=== PATIENT | male | born 1970 ===

== ENCOUNTER 2018-03-21 16:54 | Inpatient (IN) | payer OTHER ==
[2018-03-21 19:02] LABS: BASO # 0.1 K/uL (0.0-0.2); EOS % 0.2 % (0.0-4.0); HEMOGLOBIN 14.8 g/dL (12.0-18.0); LYMPH # 2.4 K/uL (1.0-4.3); LYMPH % 41.5 % (20.0-40.0); MEAN CELL VOLUME 89.2 fl (80.0-94.0); MEAN CORPUSCULAR HEMOGLOBIN 29.8 pg (27.0-31.0); MEAN CORPUSCULAR HGB CONC 33.4 g/dL (33.0-37.0); MONO # 0.5 K/uL (0.0-0.8); MONO % 9.5 % (0.0-10.0); NEUT # 2.7 K/uL (1.8-7.0); NEUT % 47.8 % (50.0-75.0); NRBC % 0.3 % (0.0-0.0); RBC 4.97 Mil/uL (4.40-5.90); RED CELL DISTRIBUTION WIDTH 15.3 % (11.5-14.5); WHITE BLOOD COUNT 5.7 K/uL (4.8-10.8)
--- NOTE | 2018-03-21 19:22 | ED PDOC ---
HPI: Psych/Substance Abuse Time Seen by Provider: 03/21/18 17:13 Chief Complaint (Nursing): Psychiatric Evaluation History Per: Patient Additional Complaint(s): Pt. states for the past 3 months he's had progressively worsening anxiety. Indicates that is the source of his stress. States that this time of the year is the busiest season for his job. 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 Reports feeling a lot of pressure from his managers. Today he took off from work as he was unable to withstand feeling anxious. Also reports drinking 3 shots of vodka today and has had fleeting thoughts of suicide without a plan. Pt. still feels suicidal. Has had similar symptoms in the past and has seen a psychiatrist and been prescribed meds for anxiety but does not take it. Denies HI, hallucinations, chest pain, SOB, palpitations. Past Medical History Reviewed: Historical Data, Nursing Documentation, Vital Signs Vital Signs: Last Vital Signs Temp 98.2 F 03/21/18 16:58 Pulse 112 H 03/21/18 16:58 Resp 19 03/21/18 16:58 BP 141/96 H 03/21/18 16:58 Pulse Ox 98 03/21/18 16:58 - Medical History PMH: Anxiety, Diabetes, Diverticulitis, HTN - Surgical History Surgical History: No Surg Hx - Family History Family History: States: No Known Family Hx - Living Arrangements Living Arrangements: With Friends/Others (girlfriend) - Social History Current smoker - smoking cessation education provided: No Alcohol: Occasional Drugs: Cocaine - Home Medications Home Medications: Ambulatory Orders Medication Instructions Recorded Cholecalciferol [Vitamin D 1000 IU] 1,000 unit PO DAILY 03/21/18 Escitalopram [Lexapro] 10 mg PO DAILY 03/21/18 Ezetimibe [Zetia] 10 mg PO DAILY 03/21/18 Indomethacin [Indocin] 50 mg PO Q6 PRN 03/21/18 MetFORMIN [glucoPHAGE] 1,000 mg PO BID 03/21/18 Rosuvastatin Calcium [Crestor] 40 mg PO DAILY 03/21/18 amLODIPine [Norvasc] 10 mg PO DAILY 03/21/18 busPIRone [Buspar] 10 mg PO Q8 03/21/18 clonazePAM [Klonopin] 0.25 mg PO Q12 03/21/18 hydrALAZINE [Apresoline] 50 mg PO Q6 03/21/18 - Allergies Allergies/Adverse Reactions: Allergies Allergy/AdvReac Type Severity Reaction Status Date / Time No Known Allergies Allergy Verified 03/21/18 17:05 Review of Systems ROS Statement: Except As Marked, All Systems Reviewed And Found Negative Psych: Positive for: Anxiety Physical Exam - Reviewed Nursing Documentation Reviewed: Yes Vital Signs Reviewed: Yes - Physical Exam Appears: Positive for: Well, Non-toxic, No Acute Distress Head Exam: Positive for: ATRAUMATIC, NORMAL INSPECTION, NORMOCEPHALIC Skin: Positive for: Normal Color, Warm. Negative for: Rash Eye Exam: Positive for: EOMI, Normal appearance, PERRL ENT: Positive for: Normal ENT Inspection Neck: Positive for: Normal, Painless ROM Cardiovascular/Chest: Positive for: Regular Rate, Rhythm, Chest Non Tender. Negative for: Tachycardia Respiratory: Positive for: CNT, Normal Breath Sounds Gastrointestinal/Abdominal: Positive for: Normal Exam, Soft. Negative for: Tenderness Back: Positive for: Normal Inspection. Negative for: L CVA Tenderness, R CVA Tenderness Extremity: Positive for: Normal ROM Neurologic/Psych: Positive for: Alert, Oriented (x3), Mood/Affect (crying but consolable and cooperative). Negative for: Aphasia, Facial Droop - Laboratory Results Result Diagrams: 03/21/18 18:58 - ECG ECG: Positive for: Interpreted By Me ECG Rhythm: Positive for: Sinus Rhythm. Negative for: ST/T Changes Rate: 92 O2 Sat by Pulse Oximetry: 98 - Progress ED Course And Treament: Labs, EKG ordered. Pt. placed on 1:1. Disposition - Clinical Impression Clinical Impression: Anxiety - Patient ED Disposition Is Patient to be Admitted: Transfer of Care (Signed out to Yeison LAU pending medical clearance and crisis eval) - Disposition Disposition Time: 20:00 Condition: STABLE
[2018-03-21 19:32] LABS: BLOOD UREA NITROGEN 17 mg/dl (9-20); CALCIUM 8.4 mg/dL (8.4-10.2); GFR NON-AFRICAN AMERICAN > 60
[2018-03-21 19:34] LABS: SQUAMOUS EPITHIAL < 1 /hpf (0-5); URINE BACTERIA RARE (<OCC); URINE BILIRUBIN NEGATIVE (NEGATIVE); URINE BLOOD NEGATIVE (NEGATIVE); URINE CLARITY SLIGHTY-CLOUDY (Clear); URINE COLOR YELLOW (YELLOW); URINE GLUCOSE (UA) NEG (Normal); URINE PROTEIN 30 mg/dL (NEGATIVE)
[2018-03-21 19:38] LABS: ALT/SGPT 127 U/L (21-72); AST/SGOT 261 U/L (17-59)
[2018-03-21 19:40] LABS: URINE LEUKOCYTE ESTERASE NEGATIVE Leu/uL (Negative)
[2018-03-21 19:57] LABS: BARBITURATES, UR NEGATIVE (NEGATIVE); BENZODIAZEPINES, UR NEGATIVE (NEGATIVE); OPIATES, UR NEGATIVE (NEGATIVE); PHENCYCLIDINE, UR NEGATIVE (NEGATIVE)
--- NOTE | 2018-03-21 21:40 | ED PDOC ---
- Laboratory Results Result Diagrams: 03/21/18 18:58 03/21/18 18:58 - ECG O2 Sat by Pulse Oximetry: 98 - Progress ED Course And Treament: Case endorsed to sheet writer from Jeanna LAU pending u/s, final crisis dispo Clinical statement: elevated liver function tests. Findings: The liver demonstrates increased echotexture and echogenicity, with no mass lesions. The liver is enlarged, measuring 21.1 cm in longest diameter. The gallbladder contains several echogenic shadowing foci. There is no evidence of gallbladder wall thickening. A small amount of echogenic non-shadowing material is seen within the gallbladder as well. The common bile duct measures 5 mm in diameter. The pancreas demonstrates normal contour and appearance. The spleen is unremarkable, measuring 9.7 cm in longest diameter. The right kidney measures 1020 cm in length and the left kidney measures 11.9 cm in length. There is no evidence of hydronephrosis or nephrolithiasis. The visualized portions of the aorta and inferior vena cava are within normal limits. No ascites are seen. Impression: 1. Hepatomegaly with diffuse fatty infiltration of the liver. 2. Cholelithiasis with gallbladder sludge. No evidence for acute cholecystitis. Patient evaluated by storage worker; to be admitted as per Dr. Salazar Medical Decision Making Medical Decision Making: Patient medically stable for psych admission Disposition - Clinical Impression Clinical Impression: Schizoaffective disorder, Gallstones - POA Present On Arrival: None - Disposition Disposition: Admitted as In-Patient Disposition Time: 22:45 Condition: STABLE
[2018-03-21 22:30] VITALS: O2SAT 98
[2018-03-22] MEDS ORDERED: Magnesium Hydroxide Susp 30 ml UD PO PRN (00:30)
[2018-03-22] MEDS ORDERED: DiphenhydrAMINE 50 mg/ml Inj IM PRN (00:30)
[2018-03-22] MEDS ORDERED: Alum-Mag Hydrox-Simethicone Susp (30 mL) PO PRN (00:30)
--- NOTE | 2018-03-22 01:29 | PCM.BM ---
Treatment Plan Problems - Problems identified on initial assessmt Hopelessness/Helplessness Date Initiated: 03/22/18 Time Initiated: Assessment reference: NA Status: Active Altered Sleep Patterns Date Initiated: 03/22/18 Time Initiated: Assessment reference: NA Status: Active Homicidal Ideation Date Initiated: 03/22/18 Time Initiated: Assessment reference: NA Status: Active Treatment assets and liabiliti Patient Assests: cooperative, self-reliant, ADL independent, good support system, negotiates basic needs, cognitively intact Patient Liabilities: substance abuse, medical problems - Milieu Protocol Maintain good personal hygiene: daily Encourage regular showers, daily Remind patient to perform daily oral care, other Assist patient to perform ADL's (prn) Conduct patient checks and document Observation sheet: Q15 minutes Maintain personal safety: every shift Educate patient to report safety concerns to staff, every shift Monitor environment for contraband/sharps Medication safety: Monitor for expected outcome, potential side effects: every shift, Assess barriers to learning: every shift, Assess readiness for medication education: every shift
--- NOTE | 2018-03-22 08:43 | CP.PCM.CON ---
History of Present Illness - History of Present Illness History of Present Illness: 47 y/o M with a PMHx of HTN, DM2, familial hypercholesterolemia, gout and anxiety is admitted for evaluation and management of exacerbating anxiety and suicidal ideation. Pt was seenand examined at psych unit's cafeteria, with Dr Calvo. Pt reports feeling OK, denies fever, chills, chest pain, SOB, abdominal pain, nausea or change in bowel movement. PMD: Dr Calvo PMHx: Anxiety, HTN, familial hypercholesterolemia, DM2, gout, morbid obesity PSHx: denied FHx: HLD SHx: denies smoking, ocassional alcohol and uses cocaine. Review of Systems - Constitutional Constitutional: absent: Chills, Fever - EENT Eyes: absent: Change in Vision Ears: absent: Tinnitus Nose/Mouth/Throat: absent: Nasal Congestion, Mouth Lesions, Odynophagia, Neck Pain, Neck Mass - Cardiovascular Cardiovascular: absent: Chest Pain - Respiratory Respiratory: absent: Cough, Dyspnea, Hemoptysis - Gastrointestinal Gastrointestinal: absent: Abdominal Pain, Bloating, Nausea, Vomiting - Genitourinary Genitourinary: absent: Dysuria, Hematuria, Urinary Frequency Past Patient History - Past Social History Alcohol: Occasional Drugs: Cocaine - CARDIAC Hx Cardiac Disorders: Yes Hx Hypercholesterolemia: Yes Hx Hypertension: Yes - PULMONARY Hx Respiratory Disorders: No - NEUROLOGICAL Hx Neurological Disorder: No - HEENT Hx HEENT Problems: No - RENAL Hx Chronic Kidney Disease: No - ENDOCRINE/METABOLIC Hx Endocrine Disorders: Yes Hx Diabetes Mellitus Type 2: Yes - HEMATOLOGICAL/ONCOLOGICAL Hx Blood Disorders: No - INTEGUMENTARY Hx Dermatological Problems: No - MUSCULOSKELETAL/RHEUMATOLOGICAL Hx Musculoskeletal Disorders: No - GASTROINTESTINAL Hx Gastrointestinal Disorders: No - GENITOURINARY/GYNECOLOGICAL Hx Genitourinary Disorders: No - PSYCHIATRIC Hx Substance Use: Yes - SURGICAL HISTORY Hx Surgeries: No - ANESTHESIA Hx Anesthesia: Yes Hx Anesthesia Reactions: No Meds Allergies/Adverse Reactions: Allergies Allergy/AdvReac Type Severity Reaction Status Date / Time No Known Allergies Allergy Verified 03/21/18 17:05 - Medications Medications: Current Medications Acetaminophen (Tylenol 325mg Tab) 650 mg PO Q4 PRN PRN Reason: pain 4-7 Al Hydrox/Mg Hydrox/Simethicone (Maalox Plus 30 Ml) 30 ml PO Q4 PRN PRN Reason: Dyspepsia Diphenhydramine HCl (Benadryl) 50 mg IM Q6 PRN PRN Reason: Extrapyramidal S/S Unable PO Diphenhydramine HCl (Benadryl) 50 mg PO Q6 PRN PRN Reason: Extrapyramidal Symptoms Diphenhydramine HCl (Benadryl) 50 mg PO HS PRN PRN Reason: Sleep Last Admin: 03/22/18 01:08 Dose: 50 mg Haloperidol (Haldol) 5 mg PO Q4 PRN PRN Reason: Agitation Haloperidol Lactate (Haldol) 5 mg IM Q4 PRN PRN Reason: Agitation, Unable to Take PO Lorazepam (Ativan) 1 mg IM Q6 PRN PRN Reason: Anxiety/Agitation,Unable PO Lorazepam (Ativan) 1 mg PO Q8 PRN PRN Reason: Anxiety/Agitation Magnesium Hydroxide (Milk Of Magnesia) 30 ml PO HS PRN PRN Reason: Constipation Physical Exam - Constitutional Appears: No Acute Distress - Head Exam Head Exam: ATRAUMATIC, NORMAL INSPECTION - Eye Exam Eye Exam: EOMI, Normal appearance - ENT Exam ENT Exam: Mucous Membranes Moist - Neck Exam Neck exam: Positive for: Full Rom. Negative for: Lymphadenopathy, Meningismus - Respiratory Exam Respiratory Exam: NORMAL BREATHING PATTERN. absent: Rales, Rhonchi, Respiratory Distress - Cardiovascular Exam Cardiovascular Exam: REGULAR RHYTHM, +S1, +S2 - GI/Abdominal Exam GI & Abdominal Exam: Soft. absent: Distended, Guarding, Rebound, Tenderness - Extremities Exam Extremities exam: Positive for: full ROM, normal inspection. Negative for: calf tenderness, pedal edema - Neurological Exam Neurological exam: Alert, Oriented x3 Results - Vital Signs Recent Vital Signs: Last Vital Signs Temp 98.1 F 03/22/18 00:07 Pulse 98 H 03/22/18 01:05 Resp 18 03/22/18 01:05 BP 130/73 03/22/18 00:07 Pulse Ox 98 03/22/18 03:06 - Labs Result Diagrams: 03/21/18 18:58 03/21/18 18:58 Labs: Laboratory Results - last 24 hr 03/21/18 03/21/18 03/21/18 18:58 18:58 19:21 WBC 5.7 RBC 4.97 Hgb 14.8 Hct 44.4 MCV 89.2 MCH 29.8 MCHC 33.4 RDW 15.3 H Plt Count 183 MPV 8.0 Neut % (Auto) 47.8 L Lymph % (Auto) 41.5 H [place] % (Auto) 9.5 Eos % (Auto) 0.2 Baso % (Auto) 1.0 Neut # (Auto) 2.7 Lymph # (Auto) 2.4 [place] # (Auto) 0.5 Eos # (Auto) 0.0 Baso # (Auto) 0.1 Sodium 140 Potassium 4.2 Chloride 106 Carbon Dioxide 21 L Anion Gap 17 BUN 17 Creatinine 0.9 Est GFR ( Amer) > 60 Est GFR (Non-Af Amer) > 60 Random Glucose 125 H Calcium 8.4 Total Bilirubin 1.4 H AST 261 H ALT 127 H Alkaline Phosphatase 196 H Total Protein 8.1 Albumin 4.0 Globulin 4.1 H Albumin/Globulin Ratio 1.0 Urine Color Urine Clarity Urine pH Ur Specific [place] Urine Protein Urine Glucose (UA) Urine Ketones Urine Blood Urine Nitrate Urine Bilirubin Urine Urobilinogen Ur Leukocyte Esterase Urine RBC (Auto) Urine Microscopic WBC Ur Squamous Epith Cells Urine Bacteria Hyaline Casts Urine Opiates Screen Negative Urine Methadone Screen Negative Ur Barbiturates Screen Negative Ur Phencyclidine Scrn Negative Ur Amphetamines Screen Negative U Benzodiazepines Scrn Negative U Oth Cocaine Metabols Positive H U Cannabinoids Screen Negative Alcohol, Quantitative 200 H 03/21/18 19:21 WBC RBC Hgb Hct MCV MCH MCHC RDW Plt Count MPV Neut % (Auto) Lymph % (Auto) [place] % (Auto) Eos % (Auto) Baso % (Auto) Neut # (Auto) Lymph # (Auto) [place] # (Auto) Eos # (Auto) Baso # (Auto) Sodium Potassium Chloride Carbon Dioxide Anion Gap BUN Creatinine Est GFR ( Amer) Est GFR (Non-Af Amer) Random Glucose Calcium Total Bilirubin AST ALT Alkaline Phosphatase Total Protein Albumin Globulin Albumin/Globulin Ratio Urine Color Yellow Urine Clarity Slighty-cloudy Urine pH 6.0 Ur Specific [place] 1.024 Urine Protein 30 Urine Glucose (UA) Neg Urine Ketones Trace Urine Blood Negative Urine Nitrate Negative Urine Bilirubin Negative Urine Urobilinogen 1.0 Ur Leukocyte Esterase Negative Urine RBC (Auto) 2 Urine Microscopic WBC 2 Ur Squamous Epith Cells < 1 Urine Bacteria Rare Hyaline Casts 3-5 H Urine Opiates Screen Urine Methadone Screen Ur Barbiturates Screen Ur Phencyclidine Scrn Ur Amphetamines Screen U Benzodiazepines Scrn U Oth Cocaine Metabols U Cannabinoids Screen Alcohol, Quantitative Assessment & Plan - Assessment and Plan (Free Text) Assessment: 47 y/o M with a PMHx of HTN, DM2, familial hypercholesterolemia, gout and anxiety is admitted for evaluation and management of exacerbating generalized anxiety disorder and suicidal ideation. PLAN: --Afebrile, stable for psychiatry treatment. --Home meds resumed --Continue with management as per psychiatry team. Case discussed with Dr Lubna Liang - Date & Time Date: 03/22/18 Time: 14:13
[2018-03-22 09:07] VITALS: RESP 20
[2018-03-22 09:09] LABS: T4 4.55 ug/dl (5.5-11.0)
--- NOTE | 2018-03-22 09:14 | CARD ---
APPROVED REPORT Date of service: 03/21/2018 EKG Measurement Heart [id number] <Conclusion> Normal sinus rhythm Inferior infarct, age undetermined Abnormal ECG
[2018-03-22] MEDS: Cholecalciferol 1,000 INTLU TAB PO SCH (09:59)
--- NOTE | 2018-03-22 10:36 | RAD ---
Date of service: 03/21/2018 HISTORY: clearance COMPARISON: No prior. FINDINGS: LUNGS: The lungs are well inflated and clear. PLEURA: No pleural effusions or pneumothorax. CARDIOVASCULAR: The heart is normal in size. No aortic atherosclerotic calcification present. OSSEOUS STRUCTURES: Within normal limits for the patient's age. VISUALIZED UPPER ABDOMEN: Normal. OTHER FINDINGS: None. IMPRESSION: No active pulmonary disease.
--- NOTE | 2018-03-22 10:46 | US ---
Date of service: 03/21/2018 HISTORY: elevated LFTs, bilirubin COMPARISON: None. TECHNIQUE: Sonographic evaluation of the abdomen. FINDINGS: LIVER: Measures 21.1 cm. There is diffuse increased echogenicity of the liver parenchyma. No mass. No intrahepatic bile duct dilatation. GALLBLADDER: There are multiple gallstones. There is sludge within the gallbladder no wall thickening, pericholecystic fluid or positive sonographic Silverman's sign. COMMON BILE DUCT: Measures 5.0 mm. No stones. No dilatation. PANCREAS: Unremarkable as visualized. No mass. No ductal dilatation. RIGHT KIDNEY: Measures 10.8cm. Normal echogenicity. No calculus, mass, or hydronephrosis. LEFT KIDNEY: Measures 11.9cm. Normal echogenicity. No calculus, mass, or hydronephrosis. SPLEEN: Normal in size and contour. No mass. AORTA: No aneurysmal dilatation. IVC: Unremarkable. OTHER FINDINGS: None. IMPRESSION: Moderate hepatomegaly. Diffuse increased echogenicity in the liver may reflect hepatic steatosis however parenchymal infectious/ inflammatory etiologies cannot be entirely excluded. Clinical and laboratory correlation is advised. Cholelithiasis. Gallbladder sludge. A preliminary report was provided by [facility].
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
--- NOTE | 2018-03-23 08:29 | PN ---
DATE: 03/23/2018 SUBJECTIVE: The patient seen and examined. Interim events noted. Psychiatric followup and intervention noted and appreciated. Available labs reviewed. The patient remains in psych unit. Feels okay. No specific medical complaint. No specific medical issue reported by nursing staff. PHYSICAL EXAMINATION: GENERAL: The patient is in no acute distress. VITAL SIGNS: Stable. Physical exam is essentially unchanged. DIAGNOSTIC DATA: Available diagnostic data reviewed. Hemoglobin A1c 6.9. Cholesterol is more than 300. Triglyceride is 1800. ASSESSMENT AND PLAN: Overall, the patient is medically stable. The patient was noncompliant with his medication. Compliance emphasized. Plan as ordered. Ulysses Calvo MD
[2018-03-23] MEDS: Cholecalciferol 1,000 INTLU TAB PO SCH (09:18)
--- NOTE | 2018-03-23 11:28 | PCM.PYCHPN ---
Psychiatric Progress Note - Psychiatric Progress Note Patient seen today, length of contact: pt evaluated discussed with team chart reviewed Patient Chief Complaint: I do not need help I can do it on my own Problems Identified/Issues Discussed: pt evaluated, continues to be guarded , evasive with limited insight into illness, pt minimizing the homicidal threats he made, stating it was because he was intoxicated, also minimizing his cocaine abuse and its effect on his mental status , pt refusing treatment ,signed 48 hours notice requesting to be discharged Medical Problems: no hx of previous psychiatric treatment DSM 5 Symptoms Update: adjustment disorder with depressed mood impulse control disorder cocaine abuse Medication Change: No Medical Record Reviewed: Yes Mental Status Examination - Cognitive Function Orientation: Person, Place Attention: WNL Concentration: WNL Association: WNL Fund of Knowledge: WN Decription of patient's judgement and insights: poor insight and judgment - Mood Mood: Depressed, Anxious - Affect Affect: Constricted, Depressed - Speech Speech: Appropriate - Formal Thought Process Formal Thought Process: No Impairment Psychotic Thoughts and Behaviors: pt denied perceptual disturbances, non elicited - Suicidal Ideation Suicidal Ideation: No - Homicidal Ideation Homicidal Ideation: Yes Goal/Treatment Plan - Goal/Treatment Plan Need for Continued Stay: Discharge may exacerbated symptoms Progress Toward Problem(s) and Goals/Treatment Plan: pt at current mental status has no insight into illness, signed 48 hours notice requesting to be discharged , pt has made homicidal threats , pt will be screened for involuntary admission for risk for others and need for stabilization continue abilify 5mg qhs obtain collateral information cbt group and supportive therapy
[2018-03-24 09:14] VITALS: BP 117/62; PULSE 107
[2018-03-24] MEDS: Cholecalciferol 1,000 INTLU TAB PO SCH (09:14)
[2018-03-24 09:17] VITALS: TEMP 97.1
== END 2018-03-24 10:39 | disposition home or self-care (01) | DRG 885 ==
LOC: H.ER 16:54 → H.ERHOLD 22:45 → H.PSYCH 03-22 00:26
PROVIDERS: ADMIT Psychiatry & Neurology Psychiatry; ATTEND Psychiatry & Neurology Psychiatry
DX: F25.9 Schizoaffective disorder, unspecified (principal); K57.92 Diverticulitis of intestine, part unspecified, without perforation or abscess without bleeding; R45.851 Suicidal ideations; K76.0 Fatty (change of) liver, not elsewhere classified; E11.9 Type 2 diabetes mellitus without complications; F41.9 Anxiety disorder, unspecified; E78.01 Familial hypercholesterolemia; F14.10 Cocaine abuse, uncomplicated; F10.10 Alcohol abuse, uncomplicated; F63.9 Impulse disorder, unspecified; F43.21 Adjustment disorder with depressed mood; I10 Essential (primary) hypertension; K80.20 Calculus of gallbladder without cholecystitis without obstruction; R45.850 Homicidal ideations; Z91.14 Patient's other noncompliance with medication regimen

== ENCOUNTER 2018-06-15 11:13 | Emergency (ER) | payer OTHER ==
[2018-06-15 11:28] VITALS: RESP 18; TEMP 97.2; O2SAT 98
[2018-06-15 13:04] VITALS: BP 131/77; PULSE 89
--- NOTE | 2018-06-15 13:08 | ED PDOC ---
HPI: General Adult Time Seen by Provider: 06/15/18 11:31 Chief Complaint (Nursing): Abdominal Pain Chief Complaint (Provider): Lightheaded History Per: Patient History/Exam Limitations: no limitations Current Symptoms Are (Timing): Gone Now Additional History Per: Patient Additional Complaint(s): 48yo male, with history of hypertension, diabetes, comes to ER for evaluation after he saw "spots" in his vision while infront of a computer, and felt lightheaded. Patient also states he took his daily diabetes and hypertension medication without eating today. Otherwise, no weakness, persistent headache, and he offers no complaints at this time. Patient states he is feeling much better than before. Contrary to triage note, patient did not complain of abdominal pain. PMD: Dr. Ulysses Calvo Past Medical History Reviewed: Historical Data, Nursing Documentation, Vital Signs Vital Signs: Last Vital Signs Temp 97.2 F L 06/15/18 11:26 Pulse 82 06/15/18 11:26 Resp 18 06/15/18 11:26 BP 120/88 06/15/18 11:26 Pulse Ox 98 06/15/18 11:26 - Medical History PMH: Anxiety, Diabetes, Diverticulitis, HTN, Hypercholesterolemia Denies: Chronic Kidney Disease - Surgical History Surgical History: No Surg Hx - Family History Family History: States: No Known Family Hx - Home Medications Home Medications: Ambulatory Orders Medication Instructions Recorded Cholecalciferol [Vitamin D 1000 IU] 1,000 unit PO DAILY 03/21/18 Escitalopram [Lexapro] 10 mg PO DAILY 03/21/18 Ezetimibe [Zetia] 10 mg PO DAILY 03/21/18 Indomethacin [Indocin] 50 mg PO Q6 PRN 03/21/18 MetFORMIN [glucoPHAGE] 1,000 mg PO BID 03/21/18 Rosuvastatin Calcium [Crestor] 40 mg PO DAILY 03/21/18 amLODIPine [Norvasc] 10 mg PO DAILY 03/21/18 busPIRone [Buspar] 10 mg PO Q8 03/21/18 hydrALAZINE [Apresoline] 50 mg PO Q6 03/21/18 Acetaminophen [Tylenol 325mg tab] 650 mg PO Q4 PRN tab 03/24/18 - Allergies Allergies/Adverse Reactions: Allergies Allergy/AdvReac Type Severity Reaction Status Date / Time No Known Allergies Allergy Verified 03/21/18 17:05 Review of Systems ROS Statement: Except As Marked, All Systems Reviewed And Found Negative Constitutional: Negative for: Fever, Chills Eyes: Positive for: Vision Change Cardiovascular: Positive for: Light Headedness Gastrointestinal: Negative for: Abdominal Pain Neurological: Negative for: Weakness, Numbness, Headache, Dizziness Physical Exam - Reviewed Nursing Documentation Reviewed: Yes Vital Signs Reviewed: Yes - Physical Exam Appears: Positive for: Non-toxic, No Acute Distress Head Exam: Positive for: ATRAUMATIC, NORMAL INSPECTION, NORMOCEPHALIC Skin: Positive for: Normal Color Eye Exam: Positive for: Normal appearance, EOMI, PERRL Neck: Positive for: Normal, Supple Cardiovascular/Chest: Positive for: Regular Rate, Rhythm Respiratory: Positive for: Normal Breath Sounds Extremity: Positive for: Normal ROM Neurologic/Psych: Positive for: Alert, Oriented. Negative for: Motor/Sensory Deficits, Aphasia, Facial Droop - ECG O2 Sat by Pulse Oximetry: 98 (RA) Pulse Ox Interpretation: Normal Medical Decision Making Medical Decision Making: Likely transient episode of hypoglycemia Plan: -- Accucheck 1234 Accucheck noted to be 148 Patient states he feels much better and is requesting to go home. patient advised to take medications as prescribed and to follow up with PMD in 2-3 days. Return precautions given. Scribe Attestation: Documented by Jo Hobbs acting as a scribe for Esteban Caldwell MD. Provider Attestation: All medical record entries made by the Scribe were at my direction and personally dictated by me. I have reviewed the chart and agree that the record accurately reflects my personal performance of the history, physical exam, medical decision making, and the department course for this patient. I have also personally directed, reviewed, and agree with the discharge instructions and disposition. Disposition - Clinical Impression Clinical Impression: Hypoglycemia - Disposition Referrals: [facility] [Outside] Disposition: Routine/Home Disposition Time: 12:34 Condition: STABLE Instructions: Low Blood Sugar, Adult (DC) Forms: [employer] (Armenian)
== END 2018-06-15 12:34 | disposition home or self-care (01) ==
LOC: H.ER 11:13
DX: E11.649 Type 2 diabetes mellitus with hypoglycemia without coma (principal); I10 Essential (primary) hypertension; Z79.84 Long term (current) use of oral hypoglycemic drugs

== ENCOUNTER 2018-07-19 18:44 | Inpatient (IN) | payer OTHER ==
--- NOTE | 2018-07-19 20:22 | ED PDOC ---
HPI: Abdomen Time Seen by Provider: 07/19/18 20:09 Chief Complaint (Nursing): Back Pain Chief Complaint (Provider): abdominal pain History Per: Patient History/Exam Limitations: no limitations Onset/Duration Of Symptoms: Days (2) Current Symptoms Are (Timing): Still Present Location Of Pain/Discomfort: RUQ, Epigastric Quality Of Discomfort: Cramping, "Pain" Associated Symptoms: Nausea, Vomiting, Diarrhea Additional Complaint(s): 48 y/o male presents for evaluation of right-sided abdominal pain x 2 days. Patient states pain started in right flank, and travels to right upper abdomen; describes as "jero horse". Associated vomiting this morning and diarrhea. Patient was evaluated at Urgent Care today and had an ultrasound which showed an impacted stone in the gallbladder neck and was advised to come to ED. Denies fever, chest pain, shortness of breath, palpitations, changes in bowel movements, urinary symptoms. No medications taken for pain Past Medical History Reviewed: Historical Data, Nursing Documentation, Vital Signs Vital Signs: Last Vital Signs Temp 99.7 F H 07/19/18 19:55 Pulse 84 07/19/18 19:55 Resp 16 07/19/18 19:55 BP 135/85 07/19/18 19:55 Pulse Ox 97 07/19/18 19:55 - Medical History PMH: Anxiety, Diabetes, Diverticulitis, HTN, Hypercholesterolemia Denies: Chronic Kidney Disease - Surgical History Surgical History: No Surg Hx - Family History Family History: States: No Known Family Hx - Home Medications Home Medications: Ambulatory Orders Medication Instructions Recorded Cholecalciferol [Vitamin D 1000 IU] 1,000 unit PO DAILY 03/21/18 Escitalopram [Lexapro] 30 mg PO DAILY 03/21/18 Ezetimibe [Zetia] 10 mg PO DAILY 03/21/18 Indomethacin [Indocin] 50 mg PO Q6 PRN 03/21/18 MetFORMIN [glucoPHAGE] 1,000 mg PO BID 03/21/18 Rosuvastatin Calcium [Crestor] 40 mg PO DAILY 03/21/18 amLODIPine [Norvasc] 10 mg PO DAILY 03/21/18 busPIRone [Buspar] 10 mg PO Q8 03/21/18 hydrALAZINE [Apresoline] 50 mg PO Q6 03/21/18 Acetaminophen [Tylenol 325mg tab] 650 mg PO Q4 PRN tab 03/24/18 Febuxostat [Uloric] 80 mg PO DAILY 07/20/18 - Allergies Allergies/Adverse Reactions: Allergies Allergy/AdvReac Type Severity Reaction Status Date / Time No Known Allergies Allergy Verified 07/19/18 19:55 Review of Systems ROS Statement: Except As Marked, All Systems Reviewed And Found Negative Gastrointestinal: Positive for: Nausea, Vomiting, Abdominal Pain, Diarrhea Physical Exam - Reviewed Nursing Documentation Reviewed: Yes Vital Signs Reviewed: Yes - Physical Exam Appears: Positive for: Well, Non-toxic, No Acute Distress Head Exam: Positive for: ATRAUMATIC, NORMAL INSPECTION, NORMOCEPHALIC Skin: Positive for: Normal Color Eye Exam: Positive for: Normal appearance ENT: Positive for: Normal ENT Inspection Cardiovascular/Chest: Positive for: Regular Rate, Rhythm Respiratory: Positive for: Normal Breath Sounds Gastrointestinal/Abdominal: Positive for: Bowel Sounds, Soft, Tenderness (epigastric, RUQ. - Silverman's) Back: Positive for: Normal Inspection Extremity: Positive for: Normal ROM Neurological/Psych: Positive for: Awake, Alert, Oriented - Laboratory Results Result Diagrams: 07/19/18 21:52 07/19/18 21:52 - ECG ECG: Positive for: Viewed By Me (reviewed by ED attending) ECG Rhythm: Positive for: Sinus Rhythm O2 Sat by Pulse Oximetry: 97 - Radiology X-Ray: Viewed By Tn X-Ray Interpretation: No Acute Disease - Progress ED Course And Treament: -cbc -cmp -lipase -pt/ptt -blood cultures -IV toradol Patient evaluated by Dr. Ferreira residential aide on-call; recommends repeat u/s and admit for possible OR IV cefoxitin ordered Case discussed with Dr. Calvo for admission, who recommends Dr. Arce on surgery consult Date of service: 07/19/2018 History Right upper quadrant pain. Comparison None. Technique Sonographic evaluation of the right upper quadrant of the abdomen. Findings Liver Measures 21.0 cm in length. Increased echogenicity of the liver parenchyma. Smooth Contour. No mass. No intrahepatic bile duct dilatation. Gallbladder Gallstones present. No wall edema. Gallbladder wall measures 0.2 cm. No sludge. No polyp. Negative [place] sign. Common bile duct Measures 0.3 cm. No stones. No dilatation. Pancreas Unremarkable as visualized. No mass. No ductal dilatation. Right kidney Measures 12.5 x 4.6 x 5.0 cm. Normal echogenicity. No calculus, mass, or hydronephrosis. Aorta No aneurysmal dilatation. IVC Unremarkable. Other Findings None. Impression Enlarged liver with increased echogenicity. Gallstones. Otherwise, unremarkable study. Disposition - Clinical Impression Clinical Impression: Gallstones - Patient ED Disposition Is Patient to be Admitted: Yes - Disposition Disposition Time: 00:00 Condition: FAIR
[2018-07-19 22:00] LABS: BASO % 0.6 % (0.0-2.0); EOS # 0.1 K/uL (0.0-0.7); EOS % 0.7 % (0.0-4.0); HEMOGLOBIN 13.2 g/dL (12.0-18.0); LYMPH # 2.1 K/uL (1.0-4.3); LYMPH % 25.1 % (20.0-40.0); MEAN CELL VOLUME 90.4 fl (80.0-94.0); MEAN CORPUSCULAR HEMOGLOBIN 29.9 pg (27.0-31.0); MEAN CORPUSCULAR HGB CONC 33.1 g/dL (33.0-37.0); MEAN PLATELET VOLUME 9.4 fl (7.2-11.7); MONO # 0.8 K/uL (0.0-0.8); NEUT # 5.5 K/uL (1.8-7.0); NEUT % 64.6 % (50.0-75.0); NRBC % 0.1 % (0.0-0.0); RBC 4.43 Mil/uL (4.40-5.90); RED CELL DISTRIBUTION WIDTH 14.6 % (11.5-14.5); WHITE BLOOD COUNT 8.5 K/uL (4.8-10.8)
[2018-07-19 22:09] LABS: INR 1.1; PROTHROMBIN TIME 12.2 Seconds (9.8-13.1)
[2018-07-19 22:11] LABS: BLOOD UREA NITROGEN 12 mg/dl (9-20); CALCIUM 8.7 mg/dL (8.4-10.2); GFR NON-AFRICAN AMERICAN > 60; LIPASE 448 U/L (23-300)
[2018-07-19 22:12] LABS: PARTIAL THROMBOPLASTIN TIME 27.8 Seconds (25.6-37.1)
[2018-07-19 22:14] LABS: ALBUMIN 4.1 g/dL (3.5-5.0); ALT/SGPT 91 U/L (21-72); AST/SGOT 157 U/L (17-59)
[2018-07-19] MEDS ORDERED: cefOXitin 2 GM in Sodium Chloride 0.9% 100 ML IVPB STA (22:32)
[2018-07-19] MEDS ORDERED: Sodium Chloride 0.9% 1,000 ML IV STA (22:32)
--- NOTE | 2018-07-19 22:49 | CP.PCM.CON ---
History of Present Illness - History of Present Illness History of Present Illness: General Surgery Consult Note for Yazmin (Dr. Tirado is covering) Reason for consult: RUQ/epigastric pain with suspected gallstone pancreatitis 48M with PMH of DM, HTN, HLD presents to [facility] ED from urgent care for complaint of RUQ/epigastric pain. Patient was seen and evaluated in the ED. Patient states that pain began this morning around 4 AM. He reports the pain woke him up from sleep. He rates pain as severe. He describes it as constant and sharp which staretd in right flank and radiates to RUQ and epigastrium. He reports he had ABUS done at urgent care which showed 3 cm impacted stone in neck of gallbladder as per discharge paperwork. Patient does not have CD or report. He admits to having pain like this twice in the past. He states movement, palpation and eating sometimes aggravates his symptoms while nothing specifically alleviates them. Denies fever/chills, cp, SOB, palpitations, nausea/vomiting, diarrhea, incontinence, constipation, urinary symptoms. PMD: Dr. Ulysses Calvo PMH: as above PSH: denies ALL: NKDA Meds: as per EMR Social: denies tobacco/illicit drug use, drinks 3-4 beers daily after work while at home Review of Systems - Review of Systems All systems: reviewed and no additional remarkable complaints except (as per HPI) Past Patient History - Past Social History Smoking Status: Never Smoked - CARDIAC Hx Hypercholesterolemia: Yes Hx Hypertension: Yes - PULMONARY Hx Respiratory Disorders: No - NEUROLOGICAL Hx Neurological Disorder: No - HEENT Hx HEENT Problems: No - RENAL Hx Chronic Kidney Disease: No - ENDOCRINE/METABOLIC Hx Endocrine Disorders: Yes Hx Diabetes Mellitus Type 2: Yes - HEMATOLOGICAL/ONCOLOGICAL Hx Blood Disorders: No - INTEGUMENTARY Hx Dermatological Problems: No - MUSCULOSKELETAL/RHEUMATOLOGICAL Hx Musculoskeletal Disorders: No - GASTROINTESTINAL Hx Diverticulitis: Yes - GENITOURINARY/GYNECOLOGICAL Hx Genitourinary Disorders: No - PSYCHIATRIC Hx Anxiety: Yes - SURGICAL HISTORY Hx Surgeries: No - ANESTHESIA Hx Anesthesia: No Hx Anesthesia Reactions: No Meds Allergies/Adverse Reactions: Allergies Allergy/AdvReac Type Severity Reaction Status Date / Time No Known Allergies Allergy Verified 07/19/18 19:55 - Medications Medications: Current Medications Cefoxitin Sodium 2 gm/ Sodium (Chloride) 100 mls @ 100 mls/hr IVPB ONCE STA; Protocol Stop: 07/19/18 23:31 Sodium Chloride (Sodium Chloride 0.9%) 1,000 mls @ 1,000 mls/hr IV .Q1H STA Stop: 07/19/18 23:31 Physical Exam - Constitutional Appears: Well, Non-toxic, No Acute Distress - Head Exam Head Exam: ATRAUMATIC, NORMOCEPHALIC - Eye Exam Eye Exam: EOMI, Normal appearance Pupil Exam: PERRL - ENT Exam ENT Exam: Mucous Membranes Moist - Neck Exam Neck exam: Positive for: Full Rom - Respiratory Exam Respiratory Exam: NORMAL BREATHING PATTERN - Cardiovascular Exam Cardiovascular Exam: REGULAR RHYTHM - GI/Abdominal Exam GI & Abdominal Exam: Distended (mild), Normal Bowel Sounds, Soft, Tenderness (RUQ/epigastrium). absent: Firm, Guarding, Rebound, Rigid Additional comments: (+) membreno's sign - Rectal Exam Rectal Exam: Deferred - Extremities Exam Extremities exam: Positive for: normal capillary refill, pedal pulses present. Negative for: calf tenderness - Back Exam Back exam: absent: CVA tenderness (L), CVA tenderness (R) - Neurological Exam Neurological exam: Alert, Oriented x3 - Psychiatric Exam Psychiatric exam: Normal Affect, Normal Mood - Skin Skin Exam: Dry, Intact, Normal Color, Warm Results - Vital Signs Recent Vital Signs: Last Vital Signs Temp 99.7 F H 07/19/18 19:55 Pulse 84 07/19/18 19:55 Resp 16 07/19/18 19:55 BP 135/85 07/19/18 19:55 Pulse Ox 97 07/19/18 20:23 - Labs Result Diagrams: 07/19/18 21:52 07/19/18 21:52 Labs: Laboratory Results - last 24 hr 07/19/18 07/19/18 07/19/18 21:52 21:52 21:52 WBC 8.5 RBC 4.43 Hgb 13.2 Hct 40.0 MCV 90.4 MCH 29.9 MCHC 33.1 RDW 14.6 H Plt Count 176 MPV 9.4 Neut % (Auto) 64.6 Lymph % (Auto) 25.1 [place] % (Auto) 9.0 Eos % (Auto) 0.7 Baso % (Auto) 0.6 Neut # (Auto) 5.5 Lymph # (Auto) 2.1 [place] # (Auto) 0.8 Eos # (Auto) 0.1 Baso # (Auto) 0.0 PT 12.2 INR 1.1 APTT 27.8 Sodium 137 Potassium 4.5 Chloride 101 Carbon Dioxide 22 Anion Gap 19 BUN 12 Creatinine 0.8 Est GFR ( Amer) > 60 Est GFR (Non-Af Amer) > 60 Random Glucose 119 H Calcium 8.7 Total Bilirubin 1.3 AST 157 H D ALT 91 H D Alkaline Phosphatase 136 H D Total Protein 8.3 H Albumin 4.1 Globulin 4.2 H Albumin/Globulin Ratio 1.0 Lipase 448 H Assessment & Plan - Assessment and Plan (Free Text) Assessment: 48M who presents with suspected gallstone pancreatitis Plan: -NPO -IVF -IV abx -Pain control -Anti-emetics/Anti-pyretics PRN -f/u ABUS -f/u Labs in AM -Tentatively plan for Laparoscopic Cholecystectomy in [place] 07/21 -Discussed with Dr. Celestino Ferreira PGY2 - Date & Time Date: 07/19/18 Time: 22:51
[2018-07-20] MEDS ORDERED: HYDROmorphone 0.5 mg/0.5 ml ISec IVP PRN ×2 (00:36→22:47)
[2018-07-20] MEDS ORDERED: HYDROmorphone 0.5 mg/0.5 ml ISec IVP SCH (01:00)
[2018-07-20] MEDS: Lactated Ringer's 1,000 ML IV SCH ×4 (01:09→23:40)
[2018-07-20] MEDS: cefOXitin 2 GM in Sodium Chloride 0.9% 100 ML IVPB SCH ×4 (01:09→23:00)
--- NOTE | 2018-07-20 06:32 | CP.PCM.HP ---
<Saadia Wren - Last Filed: 07/20/18 09:25> History of Present Illness - History of Present Illness History of Present Illness: This is 48 y/o male with PMH of HTN, NIDDM-II, familial hypercholesterolemia, gout, diverticulosis, alcohol use disorder, cocaine use and anxiety admitted for evaluation and treatment of RUQ abdominal pain/flank pain. As per patient, sharp, Intermittent flank pain started 2 days ago which is radiating to RUQ and epigastric, 7/10 in severity, no alleviating or aggravating factors noted, associated with n/v. Patient denies any chest pain, SOB, dysuria or fever. Tremayne payne visited Urgent care for this pain yesterday who diagnosed patient with gallstone after an U/S and recommended to come to the ER. PMHx: HTN, NIDDM-II, familial hypercholesterolemia, gout, diverticulosis, alcohol use disorder, cocaine use and anxiety PSHx: denied meds: as per medrec Allg: NKDA FHx: + DM/HTN/HLD SHx: denies smoking, daily alcohol use/3 beers a day and + cocaine use (Not used in last one week) ROS: As per HPI Present on Admission - Present on Admission Any Indicators Present on Admission: No Past Patient History - Past Medical History & Family History Past Medical History?: Yes - Past Social History Smoking Status: Never Smoked - CARDIAC Hx Cardiac Disorders: Yes - PULMONARY Hx Respiratory Disorders: No - NEUROLOGICAL Hx Neurological Disorder: No - HEENT Hx HEENT Problems: No - RENAL Hx Chronic Kidney Disease: No - ENDOCRINE/METABOLIC Hx Endocrine Disorders: Yes Hx Diabetes Mellitus Type 2: Yes - HEMATOLOGICAL/ONCOLOGICAL Hx Blood Disorders: No Hx AIDS: No Hx Human Immunodeficiency Virus (HIV): No - INTEGUMENTARY Hx Dermatological Problems: No - MUSCULOSKELETAL/RHEUMATOLOGICAL Hx Musculoskeletal Disorders: No Hx Falls: No - GASTROINTESTINAL Hx Diverticulitis: Yes - GENITOURINARY/GYNECOLOGICAL Hx Genitourinary Disorders: No - PSYCHIATRIC Hx Anxiety: Yes - SURGICAL HISTORY Hx Surgeries: No - ANESTHESIA Hx Anesthesia: No Hx Anesthesia Reactions: No Meds Allergies/Adverse Reactions: Allergies Allergy/AdvReac Type Severity Reaction Status Date / Time No Known Allergies Allergy Verified 07/19/18 19:55 Physical Exam - Constitutional Appears: No Acute Distress - Head Exam Head Exam: NORMAL INSPECTION - Eye Exam Eye Exam: EOMI, Normal appearance, PERRL Pupil Exam: NORMAL ACCOMODATION - ENT Exam ENT Exam: Mucous Membranes Moist - Neck Exam Neck exam: Positive for: Normal Inspection - Respiratory Exam Respiratory Exam: Clear to Auscultation Bilateral, NORMAL BREATHING PATTERN. absent: Rhonchi, Wheezes, Respiratory Distress - Cardiovascular Exam Cardiovascular Exam: REGULAR RHYTHM, +S1, +S2 - GI/Abdominal Exam GI & Abdominal Exam: Distended, Normal Bowel Sounds, Tenderness (epigastric). a bsent: Guarding, Hernia, Rebound, Rigid - Rectal Exam Rectal Exam: Deferred - Extremities Exam Extremities exam: Positive for: normal inspection - Back Exam Back exam: NORMAL INSPECTION. absent: CVA tenderness (L), CVA tenderness (R) - Neurological Exam Neurological exam: Alert, CN II-XII Intact, Normal Gait, Oriented x3, Reflexes Normal - Psychiatric Exam Psychiatric exam: Normal Affect - Skin Skin Exam: Normal Color Results - Vital Signs Recent Vital Signs: Last Vital Signs Temp 97.5 F L 07/20/18 03:49 Pulse 84 07/20/18 03:49 Resp 20 07/20/18 03:49 BP 138/83 07/20/18 03:49 Pulse Ox 97 07/20/18 03:03 - Labs Result Diagrams: 07/20/18 06:00 07/20/18 06:00 Labs: Laboratory Results - last 24 hr 07/19/18 07/19/18 07/19/18 21:52 21:52 21:52 WBC 8.5 RBC 4.43 Hgb 13.2 Hct 40.0 MCV 90.4 MCH 29.9 MCHC 33.1 RDW 14.6 H Plt Count 176 MPV 9.4 Neut % (Auto) 64.6 Lymph % (Auto) 25.1 [place] % (Auto) 9.0 Eos % (Auto) 0.7 Baso % (Auto) 0.6 Neut # (Auto) 5.5 Lymph # (Auto) 2.1 [place] # (Auto) 0.8 Eos # (Auto) 0.1 Baso # (Auto) 0.0 PT 12.2 INR 1.1 APTT 27.8 Sodium 137 Potassium 4.5 Chloride 101 Carbon Dioxide 22 Anion Gap 19 BUN 12 Creatinine 0.8 Est GFR ( Amer) > 60 Est GFR (Non-Af Amer) > 60 POC Glucose (mg/dL) Random Glucose 119 H Calcium 8.7 Total Bilirubin 1.3 AST 157 H D ALT 91 H D Alkaline Phosphatase 136 H D Total Protein 8.3 H Albumin 4.1 Globulin 4.2 H Albumin/Globulin Ratio 1.0 Lipase 448 H 07/20/18 05:13 WBC RBC Hgb Hct MCV MCH MCHC RDW Plt Count MPV Neut % (Auto) Lymph % (Auto) [place] % (Auto) Eos % (Auto) Baso % (Auto) Neut # (Auto) Lymph # (Auto) [place] # (Auto) Eos # (Auto) Baso # (Auto) PT INR APTT Sodium Potassium Chloride Carbon Dioxide Anion Gap BUN Creatinine Est GFR ( Amer) Est GFR (Non-Af Amer) POC Glucose (mg/dL) 116 H Random Glucose Calcium Total Bilirubin AST ALT Alkaline Phosphatase Total Protein Albumin Globulin Albumin/Globulin Ratio Lipase Assessment & Plan - Assessment and Plan (Free Text) Assessment: A/P: 48 y/o male with PMH of HTN, NIDDM-II, familial hypercholesterolemia, gout, diverticulosis, alcohol use disorder, cocaine use and anxiety admitted for evaluation and treatment of RUQ abdominal pain/flank pain. Acute Right upper abdominal pain/Epigastric pain, due to gallstones - U/S abdomen: Cholelithiasis, hepatic steatosis - Consult Surgery, recommendations appreciated - Possible surgical intervention on 07/21 - C/w pain management - C/w IVF - Advance diet as tolerated, currently NPO HTN - Controlled, Chronic - C/w home medications as ordered NIDDM-II - Controlled, Chronic - C/w home medications as ordered - Sliding scale DVT PPX - SCD for now, possible surgery <Ulysses Calvo - Last Filed: 07/20/18 11:34> Results - Vital Signs Recent Vital Signs: Last Vital Signs Temp 97.6 F 07/20/18 08:26 Pulse 76 07/20/18 08:26 Resp 20 07/20/18 08:26 BP 122/75 07/20/18 08:26 Pulse Ox 98 07/20/18 08:26 - Labs Result Diagrams: 07/20/18 06:00 07/20/18 06:00 Labs: Laboratory Results - last 24 hr 07/19/18 07/19/18 07/19/18 21:52 21:52 21:52 WBC 8.5 RBC 4.43 Hgb 13.2 Hct 40.0 MCV 90.4 MCH 29.9 MCHC 33.1 RDW 14.6 H Plt Count 176 MPV 9.4 Neut % (Auto) 64.6 Lymph % (Auto) 25.1 [place] % (Auto) 9.0 Eos % (Auto) 0.7 Baso % (Auto) 0.6 Neut # (Auto) 5.5 Lymph # (Auto) 2.1 [place] # (Auto) 0.8 Eos # (Auto) 0.1 Baso # (Auto) 0.0 PT 12.2 INR 1.1 APTT 27.8 Sodium 137 Potassium 4.5 Chloride 101 Carbon Dioxide 22 Anion Gap 19 BUN 12 Creatinine 0.8 Est GFR ( Amer) > 60 Est GFR (Non-Af Amer) > 60 POC Glucose (mg/dL) Random Glucose 119 H Calcium 8.7 Phosphorus Magnesium Total Bilirubin 1.3 AST 157 H D ALT 91 H D Alkaline Phosphatase 136 H D Total Protein 8.3 H Albumin 4.1 Globulin 4.2 H Albumin/Globulin Ratio 1.0 Lipase 448 H Blood Type Blood Type Confirm Antibody Screen BBK History Checked 07/20/18 07/20/18 07/20/18 05:13 06:00 06:00 WBC 4.9 RBC 4.04 L Hgb 12.1 Hct 36.6 MCV 90.7 MCH 29.9 MCHC 33.0 RDW 14.9 H Plt Count 141 MPV 8.6 Neut % (Auto) 56.6 Lymph % (Auto) 30.7 [place] % (Auto) 11.0 H Eos % (Auto) 1.3 Baso % (Auto) 0.4 Neut # (Auto) 2.7 Lymph # (Auto) 1.5 [place] # (Auto) 0.5 Eos # (Auto) 0.1 Baso # (Auto) 0.0 PT 12.5 INR 1.1 APTT 35.7 Sodium Potassium Chloride Carbon Dioxide Anion Gap BUN Creatinine Est GFR ( Amer) Est GFR (Non-Af Amer) POC Glucose (mg/dL) 116 H Random Glucose Calcium Phosphorus Magnesium Total Bilirubin AST ALT Alkaline Phosphatase Total Protein Albumin Globulin Albumin/Globulin Ratio Lipase Blood Type Blood Type Confirm Antibody Screen BBK History Checked 07/20/18 07/20/18 07/20/18 06:00 06:00 06:00 WBC RBC Hgb Hct MCV MCH MCHC RDW Plt Count MPV Neut % (Auto) Lymph % (Auto) [place] % (Auto) Eos % (Auto) Baso % (Auto) Neut # (Auto) Lymph # (Auto) [place] # (Auto) Eos # (Auto) Baso # (Auto) PT INR APTT Sodium 139 Potassium 3.3 L Chloride 103 Carbon Dioxide 25 Anion Gap 14 BUN 11 Creatinine 0.9 Est GFR ( Amer) > 60 Est GFR (Non-Af Amer) > 60 POC Glucose (mg/dL) Random Glucose 116 H Calcium 8.0 L Phosphorus 3.2 Magnesium 1.6 Total Bilirubin 0.9 AST 100 H D ALT 83 H Alkaline Phosphatase 106 Total Protein 6.9 Albumin 3.3 L Globulin 3.6 Albumin/Globulin Ratio 0.9 L Lipase 370 H Blood Type O POSITIVE Blood Type Confirm Antibody Screen Negative BBK History Checked No verified bt 07/20/18 07/20/18 07:27 10:47 WBC RBC Hgb Hct MCV MCH MCHC RDW Plt Count MPV Neut % (Auto) Lymph % (Auto) [place] % (Auto) Eos % (Auto) Baso % (Auto) Neut # (Auto) Lymph # (Auto) [place] # (Auto) Eos # (Auto) Baso # (Auto) PT INR APTT Sodium Potassium Chloride Carbon Dioxide Anion Gap BUN Creatinine Est GFR ( Amer) Est GFR (Non-Af Amer) POC Glucose (mg/dL) 131 H Random Glucose Calcium Phosphorus Magnesium Total Bilirubin AST ALT Alkaline Phosphatase Total Protein Albumin Globulin Albumin/Globulin Ratio Lipase Blood Type Blood Type Confirm O POSITIVE Antibody Screen BBK History Checked Assessment & Plan - Assessment and Plan (Free Text) Assessment: Patient was personally seen and examined by me in rounds with residents. Available labs and diagnostic data reviewed. Case, Patient's condition and management plan discussed with residents in rounds. Agree with resident's progress note. Plan: As ordered.
[2018-07-20 06:52] LABS: BASO % 0.4 % (0.0-2.0); EOS # 0.1 K/uL (0.0-0.7); EOS % 1.3 % (0.0-4.0); HEMOGLOBIN 12.1 g/dL (12.0-18.0); LYMPH # 1.5 K/uL (1.0-4.3); LYMPH % 30.7 % (20.0-40.0); MEAN CELL VOLUME 90.7 fl (80.0-94.0); MEAN CORPUSCULAR HEMOGLOBIN 29.9 pg (27.0-31.0); MEAN PLATELET VOLUME 8.6 fl (7.2-11.7); MONO # 0.5 K/uL (0.0-0.8); NEUT # 2.7 K/uL (1.8-7.0); NEUT % 56.6 % (50.0-75.0); NRBC % 0.2 % (0.0-0.0); RBC 4.04 Mil/uL (4.40-5.90); RED CELL DISTRIBUTION WIDTH 14.9 % (11.5-14.5); WHITE BLOOD COUNT 4.9 K/uL (4.8-10.8)
[2018-07-20 06:56] LABS: INR 1.1; PROTHROMBIN TIME 12.5 Seconds (9.8-13.1)
[2018-07-20 06:58] LABS: PARTIAL THROMBOPLASTIN TIME 35.7 Seconds (25.6-37.1)
[2018-07-20] MEDS: Insulin Lispro (humaLOG) 100 Units/ml Inj SC SCH ×4 (07:19→22:00)
[2018-07-20 07:24] LABS: ALB/GLOB RATIO 0.9 (1.0-2.1); ALBUMIN 3.3 g/dL (3.5-5.0); ALT/SGPT 83 U/L (21-72); AST/SGOT 100 U/L (17-59); BLOOD UREA NITROGEN 11 mg/dl (9-20); GFR NON-AFRICAN AMERICAN > 60
--- NOTE | 2018-07-20 07:48 | CP.PCM.PN ---
Subjective - Date & Time of Evaluation Date of Evaluation: 07/20/18 Time of Evaluation: 07:44 - Subjective Subjective: General Surgery Consult note for Dr. Ace 48 y/o male with PMHx of DM, HTN, HLD seen and evaluated at bedside. Patient complains of minimal pain at this time, which he states is intermittent. Patient denies flatus or having a bowel movement. Denies fever/chills, cp, SOB, palpitations, nausea/vomiting, diarrhea, incontinence, constipation, urinary symptoms. Objective - Vital Signs/Intake and Output Vital Signs (last 24 hours): Temp Pulse Resp BP Pulse Ox 97.5 F L 84 20 138/83 97 07/20/18 03:49 07/20/18 03:49 07/20/18 03:49 07/20/18 03:49 07/20/18 03:03 - Medications Medications: Current Medications Acetaminophen (Tylenol 325mg Tab) 650 mg PO Q6 PRN PRN Reason: Fever >100.4 F Hydromorphone HCl (Dilaudid) 0.5 mg IVP Q3 PRN PRN Reason: Pain, severe (8-10) Stop: 07/21/18 22:53 Lactated Ringer's (Lactated Ringer's) 1,000 mls @ 135 mls/hr IV .Q7H25M WANG Last Admin: 07/20/18 01:09 Dose: 135 mls/hr Cefoxitin Sodium 2 gm/ Sodium (Chloride) 100 mls @ 100 mls/hr IVPB Q8H WANG; Protocol Last Admin: 07/20/18 07:16 Dose: 100 mls/hr Potassium Chloride (Potassium Chloride 20 Meq/100 Ml) 100 mls @ 50 mls/hr IVPB Q2 WANG Stop: 07/20/18 11:59 Insulin Human Lispro (Humalog) 0 units SC ACHS WANG; Protocol Last Admin: 07/20/18 07:19 Dose: Not Given Ondansetron HCl (Zofran Inj) 4 mg IVP Q6 PRN PRN Reason: Nausea/Vomiting Pantoprazole Sodium (Protonix Inj) 40 mg IVP DAILY WANG - Labs Labs: 07/20/18 06:00 07/20/18 06:00 PT 12.5 Seconds (9.8-13.1) 07/20/18 06:00 INR 1.1 07/20/18 06:00 APTT 35.7 Seconds (25.6-37.1) 07/20/18 06:00 - Constitutional Appears: Well, Non-toxic, No Acute Distress - Head Exam Head Exam: ATRAUMATIC, NORMOCEPHALIC - Respiratory Exam Respiratory Exam: absent: Accessory Muscle Use, Clear to Ausculation Bilateral, Respiratory Distress, NORMAL BREATHING PATTERN - Cardiovascular Exam Cardiovascular Exam: REGULAR RHYTHM, +S1, +S2 - GI/Abdominal Exam GI & Abdominal Exam: Soft, Tenderness, Normal Bowel Sounds Additional comments: positive diffuse pain - Neurological Exam Neurological Exam: Alert, Oriented x3 - Psychiatric Exam Psychiatric exam: Normal Affect, Normal Mood - Skin Skin Exam: Normal Color Assessment and Plan - Assessment and Plan (Free Text) Assessment: 48 y/o male who presents with suspected gallstone pancreatitis Plan: -NPO at this time -Continue IVF -Continue IV abx -Continue Pain control -Anti-emetics/Anti-pyretics PRN -Abdominal US: gallstones -Tentatively plan for Laparoscopic Cholecystectomy in OR 07/[address] Tirado/Schwarz PGY1
--- NOTE | 2018-07-20 08:27 | US ---
Date of service: 07/19/2018 HISTORY: Abdominal pain COMPARISON: 03/21/2018. TECHNIQUE: The grayscale imaging was performed. FINDINGS: LIVER: Measures 21.0 cm in length. There is diffuse increased echogenicity of the liver parenchyma. No mass. No intrahepatic bile duct dilatation. GALLBLADDER: There are multiple gallstones. No wall thickening or pericholecystic fluid. The sonographic Silverman's sign is negative. COMMON BILE DUCT: Measures 3.0 mm. No stones. No dilatation. PANCREAS: Unremarkable as visualized. No mass. No ductal dilatation. RIGHT KIDNEY: Measures 12.5 cm in length. Normal echogenicity. No calculus, mass, or hydronephrosis. AORTA: No aneurysmal dilatation. IVC: Unremarkable. OTHER FINDINGS: None . IMPRESSION: Cholelithiasis. No biliary dilatation. Mild hepatomegaly. Diffuse increased echogenicity in the liver may reflect hepatic steatosis however parenchymal infectious/ inflammatory etiologies cannot be entirely excluded. Clinical and laboratory correlation is advised.
--- NOTE | 2018-07-20 09:04 | CARD ---
APPROVED REPORT Date of service: 07/19/2018 EKG Measurement Heart [id number] <Conclusion> Normal sinus rhythm Prolonged QT Abnormal ECG
[2018-07-20] MEDS: Potassium Chloride 20 mEq 100 ML IVPB SCH ×2 (09:07→10:09)
[2018-07-20] MEDS: Lidocaine 5% Patch TD SCH (10:12)
[2018-07-20] MEDS ORDERED: Potassium Chloride 20 mEq/15 ml LIQ UD PO ONE (10:36)
--- NOTE | 2018-07-20 11:02 | RAD ---
Date of service: 07/20/2018 PROCEDURE: CHEST RADIOGRAPH, 1 VIEW HISTORY: admit COMPARISON: 03/21/2018. FINDINGS: LUNGS: Clear. PLEURA: No pneumothorax or pleural fluid seen. CARDIOVASCULAR: No aortic atherosclerotic calcification present. Normal. OSSEOUS STRUCTURES: No significant abnormalities. VISUALIZED UPPER ABDOMEN: Normal. OTHER FINDINGS: None. IMPRESSION: No active disease. No acute/significant interval changes.
[2018-07-20 15:34] LABS: URINE BILIRUBIN NEGATIVE (NEGATIVE); URINE BLOOD NEGATIVE (NEGATIVE); URINE CLARITY CLEAR (Clear); URINE COLOR YELLOW (YELLOW); URINE GLUCOSE (UA) NEG (NEGATIVE); URINE LEUKOCYTE ESTERASE NEG Leu/uL (Negative); URINE PROTEIN 30 mg/dL (NEGATIVE); URINE UROBILINOGEN 0.2-1.0 mg/dL (0.2-1.0)
[2018-07-20] MEDS ORDERED: Bupivacaine HCl 0.5% PF (30 ml) Inj ONE (20:24)
[2018-07-20] MEDS ORDERED: Propofol 10 mg/ml Inj (20 ML) ONE (21:03)
[2018-07-20] MEDS ORDERED: Rocuronium 10 mg/ml (5 ml) ONE (21:03)
[2018-07-20] MEDS ORDERED: Succinylcholine 200 mg/10 ml Inj IV ONE (21:03)
[2018-07-20] MEDS ORDERED: Midazolam 2 MG/2 ML VIAL ONE (21:03)
[2018-07-20] MEDS ORDERED: Lidocaine 1% 5ml Abboject ONE (21:04)
[2018-07-20] MEDS ORDERED: Lidocaine 4% (Laryng-O-Jet) Kit MM ONE (21:04)
[2018-07-20] MEDS ORDERED: Neostigmine 1:1000 (1 mg/ml) Inj ONE (21:04)
[2018-07-20] MEDS ORDERED: Bupivacaine 0.5% Inj(30mL) IJ ONE (21:23)
[2018-07-20] MEDS ORDERED: Oxycodone/Acetaminophen 5/325 mg Tab PO PRN (22:41)
--- NOTE | 2018-07-20 22:43 | PCM.SURG1 ---
Surgeon's Initial Post Op Note - Surgeon's Notes Surgeon: Dr. Bartlett Race Relations Adviser: Dr. Mccollum PGY3 Type of Anesthesia: General Endo Anesthesia Administered By: Dr. Jain Pre-Operative Diagnosis: Gallstone Pancreatitis Operative Findings: See operative dictation Post-Operative Diagnosis: Same Operation Performed: Laparoscopic Cholecsytectomy Specimen/Specimens Removed: Gallbladder Estimated Blood Loss: EBL {In ML}: 15 Blood Products Given: N/A Drains Used: No Drains Post-Op Condition: Good Date of Surgery/Procedure: 07/20/18 Time of Surgery/Procedure: 22:43
[2018-07-20] MEDS ORDERED: Lactated Ringer's 1,000 ML IV SCH (23:00)
[2018-07-21 05:46] VITALS: RESP 20
[2018-07-21] MEDS: cefOXitin 2 GM in Sodium Chloride 0.9% 100 ML IVPB SCH (06:18)
[2018-07-21 06:58] LABS: ALBUMIN 3.8 g/dL (3.5-5.0); ALT/SGPT 70 U/L (21-72); AST/SGOT 96 U/L (17-59); BLOOD UREA NITROGEN 5 mg/dl (9-20); CALCIUM 8.7 mg/dL (8.4-10.2); GFR NON-AFRICAN AMERICAN > 60; LIPASE 147 U/L (23-300)
[2018-07-21] MEDS: Insulin Lispro (humaLOG) 100 Units/ml Inj SC SCH (07:22)
--- NOTE | 2018-07-21 08:10 | CP.PCM.PN ---
Subjective - Date & Time of Evaluation Date of Evaluation: 07/21/18 Time of Evaluation: 08:08 - Subjective Subjective: General surgery consult note for Dr. Bartlett 48 y/o male patient seen and evaluated at bedside. patient states he has minimal pain to the surgical sites. patient denies any nausea, vomiting. Patient passing flatus. Patient aware he has to follow up with primary and Dr. Bartlett within 1 week of discharge. Objective - Vital Signs/Intake and Output Vital Signs (last 24 hours): Temp Pulse Resp BP Pulse Ox 98.3 F 77 20 114/71 95 07/21/18 03:00 07/21/18 03:00 07/21/18 03:00 07/21/18 03:00 07/21/18 03:00 Intake and Output: 07/21/18 07/21/18 06:59 18:59 Intake Total 1100 Balance 1100 - Medications Medications: Current Medications Acetaminophen (Tylenol 325mg Tab) 650 mg PO Q6 PRN PRN Reason: Fever >100.4 F Hydromorphone HCl (Dilaudid) 0.5 mg IVP Q3 PRN PRN Reason: Pain, severe (8-10) Stop: 07/21/18 22:53 Lactated Ringer's (Lactated Ringer's) 1,000 mls @ 135 mls/hr IV .Q7H25M WANG Last Admin: 07/20/18 23:40 Dose: 0 mls Cefoxitin Sodium 2 gm/ Sodium (Chloride) 100 mls @ 100 mls/hr IVPB Q8H WANG; Protocol Last Admin: 07/21/18 06:18 Dose: 100 mls/hr Lactated Ringer's (Lactated Ringer's) 1,000 mls @ 100 mls/hr IV .Q10H WANG Insulin Human Lispro (Humalog) 0 units SC ACHS WANG; Protocol Last Admin: 07/21/18 07:22 Dose: Not Given Lidocaine (Lidoderm) 1 ea TD DAILY WANG Last Admin: 07/20/18 10:12 Dose: 1 ea Ondansetron HCl (Zofran Inj) 4 mg IVP Q6 PRN PRN Reason: Nausea/Vomiting Oxycodone/Acetaminophen (Percocet 5/325 Mg Tab) 1 tab PO Q4 PRN PRN Reason: Pain, moderate (4-7) Stop: 07/23/18 22:42 Pantoprazole Sodium (Protonix Inj) 40 mg IVP DAILY WANG Last Admin: 07/20/18 10:20 Dose: 40 mg - Labs Labs: 07/20/18 06:00 07/21/18 06:00 PT 12.5 Seconds (9.8-13.1) 07/20/18 06:00 INR 1.1 07/20/18 06:00 APTT 35.7 Seconds (25.6-37.1) 07/20/18 06:00 - Constitutional Appears: Well, Non-toxic, No Acute Distress - Head Exam Head Exam: ATRAUMATIC, NORMOCEPHALIC - ENT Exam ENT Exam: Mucous Membranes Moist - Respiratory Exam Respiratory Exam: Clear to Ausculation Bilateral, NORMAL BREATHING PATTERN. absent: Accessory Muscle Use, Respiratory Distress - Cardiovascular Exam Cardiovascular Exam: REGULAR RHYTHM, +S1, +S2 - GI/Abdominal Exam GI & Abdominal Exam: Soft, Tenderness, Normal Bowel Sounds. absent: Distended, Firm, Guarding, Rigid - Neurological Exam Neurological Exam: Alert, Awake, Oriented x3 - Psychiatric Exam Psychiatric exam: Normal Affect, Normal Mood - Skin Skin Exam: Normal Color Assessment and Plan - Assessment and Plan (Free Text) Assessment: 48 y/o male patient POD1 s/p laparoscopic cholecystectomy Plan: -Change in diet advised -Continue Pain control -Follow up with Dr. Bartlett within 1 week of discharge -Encourage ambulation Case discussed with Schwarz PGY1
[2018-07-21 08:24] VITALS: BP 116/75; PULSE 90; TEMP 97.8; O2SAT 97
--- NOTE | 2018-07-21 09:00 | CP.PCM.DIS ---
Provider - Provider Date of Admission: 07/20/18 00:03 Attending physician: Ulysses Calvo MD Primary care physician: Dr. Calvo Consults: 07/19/18 23:57 Surgery [General Surgery Consult] Stat Comment: Consulting Provider: Norris Arce Consulting Physician: Norris Arce Reason for Consult: gallstones, intractable pain Time Spent in preparation of Discharge (in minutes): 40 Diagnosis - Discharge Diagnosis (1) Gallstones Status: Acute (2) S/P laparoscopic cholecystectomy Status: Acute Comment: POD#1 Hospital Course - Lab Results Lab Results: Micro Results 07/19/18 21:25 Blood-Venous Blood Culture - Preliminary NO GROWTH AFTER 24 HOURS 07/19/18 21:05 Blood-Venous Blood Culture - Preliminary NO GROWTH AFTER 24 HOURS Most Recent Lab Values WBC 4.9 K/uL (4.8-10.8) 07/20/18 06:00 RBC 4.04 Mil/uL (4.40-5.90) L 07/20/18 06:00 Hgb 12.1 g/dL (12.0-18.0) 07/20/18 06:00 Hct 36.6 % (35.0-51.0) 07/20/18 06:00 MCV 90.7 fl (80.0-94.0) 07/20/18 06:00 MCH 29.9 pg (27.0-31.0) 07/20/18 06:00 MCHC 33.0 g/dL (33.0-37.0) 07/20/18 06:00 RDW 14.9 % (11.5-14.5) H 07/20/18 06:00 Plt Count 141 K/uL (130-400) 07/20/18 06:00 MPV 8.6 fl (7.2-11.7) 07/20/18 06:00 Neut % (Auto) 56.6 % (50.0-75.0) 07/20/18 06:00 Lymph % (Auto) 30.7 % (20.0-40.0) 07/20/18 06:00 [place] % (Auto) 11.0 % (0.0-10.0) H 07/20/18 06:00 Eos % (Auto) 1.3 % (0.0-4.0) 07/20/18 06:00 Baso % (Auto) 0.4 % (0.0-2.0) 07/20/18 06:00 Neut # (Auto) 2.7 K/uL (1.8-7.0) 07/20/18 06:00 Lymph # (Auto) 1.5 K/uL (1.0-4.3) 07/20/18 06:00 [place] # (Auto) 0.5 K/uL (0.0-0.8) 07/20/18 06:00 Eos # (Auto) 0.1 K/uL (0.0-0.7) 07/20/18 06:00 Baso # (Auto) 0.0 K/uL (0.0-0.2) 07/20/18 06:00 PT 12.5 Seconds (9.8-13.1) 07/20/18 06:00 INR 1.1 07/20/18 06:00 APTT 35.7 Seconds (25.6-37.1) 07/20/18 06:00 Sodium 142 mmol/l (132-148) 07/21/18 06:00 Potassium 4.7 MMOL/L (3.6-5.0) 07/21/18 06:00 Chloride 105 mmol/L (98-107) 07/21/18 06:00 Carbon Dioxide 26 mmol/L (22-30) 07/21/18 06:00 Anion Gap 16 (10-20) 07/21/18 06:00 BUN 5 mg/dl (9-20) L 07/21/18 06:00 Creatinine 0.9 mg/dl (0.8-1.5) 07/21/18 06:00 Est GFR ( Amer) > 60 07/21/18 06:00 Est GFR (Non-Af Amer) > 60 07/21/18 06:00 POC Glucose (mg/dL) 100 mg/dL (65-110) 07/21/18 05:46 Random Glucose 99 mg/dL (75-110) 07/21/18 06:00 Calcium 8.7 mg/dL (8.4-10.2) 07/21/18 06:00 Phosphorus 3.2 mg/dl (2.5-4.5) 07/20/18 06:00 Magnesium 1.6 MG/DL (1.6-2.3) 07/20/18 06:00 Total Bilirubin 0.8 mg/dl (0.2-1.3) 07/21/18 06:00 AST 96 U/L (17-59) H 07/21/18 06:00 ALT 70 U/L (21-72) 07/21/18 06:00 Alkaline Phosphatase 100 U/L (38-126) 07/21/18 06:00 Total Protein 7.5 G/DL (6.3-8.2) 07/21/18 06:00 Albumin 3.8 g/dL (3.5-5.0) 07/21/18 06:00 Globulin 3.7 gm/dL (2.2-3.9) 07/21/18 06:00 Albumin/Globulin Ratio 1.0 (1.0-2.1) 07/21/18 06:00 Lipase 147 U/L (23-300) 07/21/18 06:00 Urine Color Yellow (YELLOW) 07/20/18 15:00 Urine Clarity Clear (Clear) 07/20/18 15:00 Urine pH 5.0 (5.0-8.0) 07/20/18 15:00 Ur Specific [place] 1.034 (1.003-1.030) H 07/20/18 15:00 Urine Protein 30 mg/dL (NEGATIVE) 07/20/18 15:00 Urine Glucose (UA) Neg mg/dL (NEGATIVE) 07/20/18 15:00 Urine Ketones Trace mg/dL (NEGATIVE) 07/20/18 15:00 Urine Blood Negative (NEGATIVE) 07/20/18 15:00 Urine Nitrate Negative (NEGATIVE) 07/20/18 15:00 Urine Bilirubin Negative (NEGATIVE) 07/20/18 15:00 Urine Urobilinogen 0.2-1.0 mg/dL (0.2-1.0) 07/20/18 15:00 Ur Leukocyte Esterase Neg Macy/uL (Negative) 07/20/18 15:00 Urine RBC (Auto) 1 /hpf (0-3) 07/20/18 15:00 Urine Microscopic WBC 1 /hpf (0-5) 07/20/18 15:00 Blood Type O POSITIVE 07/20/18 06:00 Blood Type Confirm O POSITIVE 07/20/18 07:27 Antibody Screen Negative 07/20/18 06:00 BBK History Checked No verified bt 07/20/18 06:00 - Hospital Course Hospital Course: 48 y/o male with PMH of HTN, NIDDM-II, familial hypercholesterolemia, gout, diverticulosis, alcohol use disorder, cocaine use and anxiety admitted for evaluation and treatment of RUQ abdominal pain/flank pain. Patient was found to have elevated liver enzymes with lipase, Abdomen U/S: Cholelithiasis, hepatic steatosis. Surgery was consulted, patient is s/p Lap Tamara POD#1. Patient is doing well, ambulating, passing gas, tolerating PO intake, voiding freely, denies any pain, n/v/d/f. Patient is cleared for discharge, Hepetitis panel to follow and f/u with surgery and PMD with in a week. ER precautions discussed: Bleeding, pain, n/v/d/f, dizziness. C/w home medications. Rx for Pepcid and Motrin Discharge Exam - Head Exam Head Exam: ATRAUMATIC, NORMOCEPHALIC - Eye Exam Eye Exam: EOMI, Normal appearance, PERRL Pupil Exam: NORMAL ACCOMODATION - ENT Exam ENT Exam: Mucous Membranes Moist - Neck Exam Neck exam: Normal Inspection - Respiratory Exam Respiratory Exam: Clear to PA & Lateral, NORMAL BREATHING PATTERN, UNREMARKABLE. absent: Wheezes, Respiratory Distress - Cardiovascular Exam Cardiovascular Exam: REGULAR RHYTHM, +S1, +S2 - GI/Abdominal Exam GI & Abdominal Exam: Normal Bowel Sounds, Soft. absent: Distended, Guarding, Rebound, Rigid, Tenderness Additional comments: Small multiple laparoscopic cholecystectomy site: no erythema or discharge or tenderness - Extremities Exam Extremities exam: normal inspection - Back Exam Back exam: NORMAL INSPECTION - Neurological Exam Neurological exam: Alert, CN II-XII Intact, Normal Gait, Oriented x3 - Psychiatric Exam Psychiatric exam: Normal Affect - Skin Skin Exam: Normal Color Discharge Plan - Discharge Medications Prescriptions: Famotidine [Pepcid] 40 mg PO DAILY #30 tablet Ibuprofen [Motrin Tab] 600 mg PO Q6H PRN #30 tab PRN Reason: Pain, Severe (8-10) - Follow Up Plan Condition: FAIR Disposition: HOME/ ROUTINE Instructions: Cholecystectomy, Laparoscopic Surgery, Laceration Repair With Glue (DC) Additional Instructions: follow up with surgeon and PMD in 1 week Pain management: Tylenol/Motrin 600mg Q6H PRN for pain, Pepcid 40mg daily Referrals: Ulysses Calvo MD [Staff Provider] - Jean Pierre Bartlett MD [Staff Provider] - Norris Arce MD [Staff Provider] -
[2018-07-21] MEDS: Lidocaine 5% Patch TD SCH (09:46)
[2018-07-21 12:47] LABS: HEPATITIS B SURFACE AG Negative (NEGATIVE)
[2018-07-21 12:53] LABS: HEPATITIS A IGM NEGATIVE (NEGATIVE); HEPATITIS B CORE AB NEGATIVE (NEGATIVE)
[2018-07-21 13:04] LABS: HEPATITIS C ANTIBODY NEGATIVE (NEGATIVE)
--- NOTE | 2018-07-21 15:10 | OP ---
PROCEDURE DATE: 07/20/2018 SURGEON: Dr. Jean Pierre Lizama SURGEON ABIODUN: Bulmaro Mccollum DO TYPE OF ANESTHESIA: General endotracheal anesthesia. ANESTHESIA ADMINISTERED BY: Champ Jain MD COMPLICATIONS: None. SPECIMEN: Gallbladder. PATIENT INFORMATION: This is a 48-year-old male with a past medical history of diabetes, hypertension, hyperlipidemia, daily alcohol drinker of 3 to 4 beers per day who presented to [facility] with right upper quadrant pain that began at 4 a.m. the day prior. He reports the pain woke him up from sleep. The pain has harassed him in the past. He went to an urgent care previously where an ultrasound was done, which showed a 3 cm impacted stone in the neck of the gallbladder as per discharged paperwork. This is the third event in which the patient had these symptoms. On admission, he had an elevated lipase and exam consistent with acute alcoholic pancreatitis; however, symptoms have abated at this point; therefore, it has been decided as clinically indicated to undergo a laparoscopic cholecystectomy prior to discharge. DESCRIPTION OF PROCEDURE: After surgical consent was obtained by Dr. Luna and all the consequences of not operating as well as the consequences of operating now were taken into account by the patient, consent were signed. The patient was taken to the operating room, placed on the table in the supine position. Timeout was performed. Using both preinduction checklist to verify correct patient, procedure, and site, any additional critical information prior to beginning of procedure was discussed. General anesthesia was initiated and the patient was intubated. SCDs were placed and all pressure points were appropriately padded. The patient was prepped and draped in usual sterile fashion. An infraumbilical incision was then made. Using a tonsil the subcutaneous tissue was then dissected down to the fascia. A Veress needle was then inserted and position was confirmed using a saline meniscus test. Then using a Visi-Port technique, an 11 mm trocar was then inserted under the direct visualization into the abdomen. The abdomen was then inspected and no additional injuries were noted. Using the camera under direct visualization, the additional ports were then placed, followed an 11 mm subxiphoid port and two 5-mm ports along the right subcostal margin were then inserted. Inspection of the abdomen showed a gallbladder with omental adhesions indicative of previous acute cholecystitis. The table was then placed in reverse Trendelenburg and the right side was up. The gallbladder infundibulum was grasped and retracted cephalad; however, we were not able to retract it over the liver due to fatty liver that was apparent likely due to his alcohol consumption. Adhesions seen in the gallbladder and the omentum were then carefully taken down. The infundibulum was retracted anterolateral to expose Calot's triangle. Peritoneum overlying the infundibulum was incised. inferiorly was identified. Two 11-mm clips were placed on the distal aspect and one on the proximal aspect and it was then divided giving a clear view of the cystic artery, which was then clipped using the 11-mm clips in a similar fashion and divided using the laparoscopic scissor using the electrocautery and the hook. The gallbladder was then dissected off the liver bed while maintaining hemostasis. The gallbladder was then placed and the retrieval bag removed through the subxiphoid incision. The abdomen was then irrigated and suctioned. The abdomen was inspected one more time and no injuries were noted. No bleeding was noted from the liver bed. At that point, the trocars were removed under direct visualization. No bleeding was noted from the trocar sites. The abdomen was then deflated. The infraumbilical and the subxiphoid port were both closed using 0 Vicryl on a UR-6 needle as well as 4-0 Monocryl for the skin. Only the skin was closed for the 5 mm ports using the 4-0 Monocryl. All skin incisions were then additionally secured using Dermabond. The debriefing checklist was completed. The nurses reported all counts correct. The patient was then extubated in the OR and transferred to the PACU in stable condition. Bulmaro Mccollum DO Jean Pierre Lundberg MD
== END 2018-07-21 11:24 | disposition home or self-care (01) | DRG 417 ==
LOC: H.ER 18:44 → H.ERHOLD 07-20 00:03 → H.MEDSURG1 07-20 02:16
PROVIDERS: ADMIT Internal Medicine; ATTEND Internal Medicine
PROC: 0FT44ZZ Resection of Gallbladder, Percutaneous Endoscopic Approach (ICD-10-PCS; principal; 2018-07-20 21:00)
DX: K80.20 Calculus of gallbladder without cholecystitis without obstruction (principal); K85.20 Alcohol induced acute pancreatitis without necrosis or infection; E11.9 Type 2 diabetes mellitus without complications; E78.01 Familial hypercholesterolemia; E78.5 Hyperlipidemia, unspecified; I10 Essential (primary) hypertension; M10.9 Gout, unspecified; F41.9 Anxiety disorder, unspecified; Z79.84 Long term (current) use of oral hypoglycemic drugs; K70.0 Alcoholic fatty liver; Z72.89 Other problems related to lifestyle